=== PATIENT | male | born 1965 | race Caucasian/White ===

== ENCOUNTER 2017-08-04 08:06 | Day surgery (SDC) | payer BC ==
[~2017-08-04] VITALS: Ht 177.8 cm; Wt 95.3 kg
[~2017-08-04 08:06] MED LIST: ACETAMINOPHEN500 MG PO; HYDROCHLOROTHIA25 MG PO; NORCO 5-325 TA1 EACH PO; ZANTAC 7575 MG PO
[2017-08-04] MEDS ORDERED: LISINOPRIL10 MG PO (08:22)
[2017-08-04] MEDS ORDERED: OMEPRAZOLE20 MG PO (08:22)
--- NOTE | 2017-08-04 10:16 | NUR ---
08/04/17 Vandana Mcdermott 1010 PT ARRIVED TO PACU DROWSY AND MAINTAINING OWN AIRWAY. RESP EVEN AND UNLABORED. PT DENIES PAIN AND NAUSEA. ON 3L VIA NC.
--- NOTE | 2017-08-04 20:48 | OR ---
[facility] [address], [place] [address] Signed DATE OF OPERATION: 08/04/2017 SURGEON: Ashley Amador MD PREOPERATIVE DIAGNOSES: 1. Colon screening. 2. History of segmental resection of left transverse and proximal left colon 2007 (idiopathic, symptomatic, and adynamic section of colon). POSTOPERATIVE DIAGNOSIS: Normal colon to cecum. PROCEDURE PERFORMED: Total colonoscopy to cecum. ANESTHESIA: Intravenous sedation with fentanyl 100 mcg and Versed 6 mg. INDICATION: This 52-year-old white man is a patient of Dr. Mitchell. 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 He has been well since that time. He is here now for screening colonoscopy at age 52 years. The risks of bleeding, infection, and perforation related to colonoscopy were reviewed with him. He understands and wished to proceed. Of note, he has no family history of colon cancer and no symptoms currently. FINDINGS: The prep was good. Complete colonoscopy was undertaken to the cecum. There were no sign of polyps, diverticula formation, colitis, or cancer. The area of anastomosis was widely patent. DESCRIPTION OF PROCEDURE: The patient was brought to room #2 of the operating suite as a temporary endoscopy room and placed in lateral decubitus position. Intravenous sedation was induced with fentanyl and Versed to the point of slurred speech and nystagmus with full cardiopulmonary monitoring. Digital rectal examination was normal. Electronically Signed By: ASHLEY AMADOR MD 08/04/17 2048 PATIENT NAME: ERUM BREWER OPERATIVE REPORT DATE OF : 67 REPORT #: [id number] PHYSICIAN: ASHLEY AMADOR MD PCP: XENA MITCHELL MD REPORT IS CONFIDENTIAL AND NOT TO BE RELEASED WITHOUT AUTHORIZATION [facility] [address] [place] [id number] Signed An Olympus video colonoscope was passed in the rectum and manipulated throughout the colon, ultimately intubating the cecum itself. The ileocecal valve and appendiceal orifice were normal. The scope was withdrawn from that point. Examination throughout showed no sign of polyps, diverticula formation, colitis, or cancer. The anastomosis, which appeared in the lower left colon was widely patent and easily identified. Retroflexed view of the rectum was normal as well, other than some internal hemorrhoidal changes. The scope was removed and the patient was taken to the recovery room in good condition. CONCLUDING DIAGNOSIS: Normal colon. PLAN: Recommend repeat colonoscopy in 10 years or sooner if clinically indicated. He will return to the ongoing care of Dr. Mitchell. MD SIGRID Beltran/TANYA /[id number] cc: Xena Mitchell MD Copies: XENA MITCHELL MD ~ Electronically Signed By: ASHLEY AMADOR MD 08/04/17 2048 PATIENT NAME: ERUM BREWER OPERATIVE REPORT DATE OF : 67 REPORT #: [id number] PHYSICIAN: ASHLEY AMADOR MD PCP: XENA MITCHELL MD REPORT IS CONFIDENTIAL AND NOT TO BE RELEASED WITHOUT AUTHORIZATION
== END 2017-08-04 10:48 | disposition home or self-care (01) ==
LOC: DS 08:06 → OPS 08:06
PROVIDERS: Surgery
PROC: 0DJD8ZZ Inspection of Lower Intestinal Tract, Via Natural or Artificial Opening Endoscopic (ICD-10-PCS; principal; 2017-08-04 08:45)
DX: Z12.11 Encounter for screening for malignant neoplasm of colon (principal); K64.8 Other hemorrhoids; K21.0 Gastro-esophageal reflux disease with esophagitis; I10 Essential (primary) hypertension; M19.90 Unspecified osteoarthritis, unspecified site; E66.9 Obesity, unspecified; Z68.30 Body mass index [BMI] 30.0-30.9, adult; Z90.49 Acquired absence of other specified parts of digestive tract; Z87.19 Personal history of other diseases of the digestive system
CPT/HCPCS: G0500; J2250; J3010; J7120

== ENCOUNTER 2023-02-07 05:40 | Day surgery (SDC) | payer BC ==
--- NOTE | 2023-02-02 13:50 | NUR ---
PHONE TO TO THIS PATIENT TO COMPLET PHONE PRE-ADMIT. NO ANSWER LEFT MESSAGE TO CALL BACK BEFORE 3PM TODAY. WILL TRY AGAIN LATER TODAY. PHONE NUMBER WAS [phone]
[~2023-02-07] VITALS: Ht 177.8 cm; Wt 112.7 kg
[~2023-02-07 05:40] MED LIST changes: +CARDURA4 MG PO; +K-TAB ER20 MEQ PO; +LISINOPRIL10 MG PO; +MONODOX50 MG PO; +OMEPRAZOLE20 MG PO
[2023-02-07 06:15] VITALS: BP 148/94
[2023-02-07] MEDS ORDERED: HYDROCODON-ACE1 EA10 PO (07:21)
--- NOTE | 2023-02-07 07:23 | NUR ---
02/07/23 0723 Charo Jara PT TO PACU AWAKE AND ALERT DENIES PAIN AND NAUSEA. PT CONVERSING WITN STAFF.
[2023-02-07 07:41] VITALS: BP 124/86
--- NOTE | 2023-02-08 09:14 | OR ---
[facility] [address] [place], [place] [address] Signed DATE OF OPERATION: 02/07/2023 SURGEON: Sultana Jara MD PREOPERATIVE DIAGNOSIS: Carpal tunnel syndrome, left. POSTOPERATIVE DIAGNOSIS: Carpal tunnel syndrome, left. PROCEDURE PERFORMED: Carpal tunnel release, left. FEED MILL SUPERVISOR: None. ANESTHESIA: [place] block. TOURNIQUET TIME: 20 minutes. BRIEF HISTORY: Mendy is a 57-year-old gentleman with progressive worsening of numbness and pain in his wrist and hand. Nerve conduction studies were consistent with carpal tunnel. Risks and benefits of the operative treatment were discussed with him and he elected to proceed. DESCRIPTION OF PROCEDURE: Once consent was obtained, he was taken to the operating room on the day surgery bed. Hand table was brought in. The arm was then prepped and draped in a standard sterile fashion after Omid block was established. The carpal tunnel was approached through a 1.5 cm incision in the distal wrist crease carried through skin and subcutaneous tissue. The palmaris longus was minimal, but was retracted and protected. The transverse carpal ligament was identified under loupe magnification. It was then dissected free of overlying soft tissue proximally and distally. It was then released proximally a centimeter and distally to the distal extent again under direct loupe magnification. This was then palpated using [place] and confirmed to be released. The wound was copiously irrigated with normal saline, closed with 3-0 nylon. The wound was injected with 7 mL of 0.25% plain Marcaine. The wound was dressed with bacitracin, Adaptic, 4x8's, and gauze. Electronically Signed By: SULTANA JARA MD 02/08/23 0914 PATIENT NAME: MENDY BREWER OPERATIVE REPORT DATE OF : 67 REPORT #: [id number] PHYSICIAN: SULTANA JARA MD PCP: EFFIE RODRIGUEZ PA-C REPORT IS CONFIDENTIAL AND NOT TO BE RELEASED WITHOUT AUTHORIZATION [facility] [address] [place] [address] [place], [place] [address] Signed He tolerated the procedure well. All sponge, needle, and instrument counts were correct. Sultana Jara MD BA/TONYL /[id number] Copies: ~ Electronically Signed By: SULTANA JARA MD 02/08/23 0914 PATIENT NAME: MENDY BREWER OPERATIVE REPORT DATE OF : 67 REPORT #: [id number] PHYSICIAN: SULTANA JARA MD PCP: EFFIE RODRIGUEZ PA-C REPORT IS CONFIDENTIAL AND NOT TO BE RELEASED WITHOUT AUTHORIZATION
== END 2023-02-07 07:50 | disposition home or self-care (01) ==
LOC: DS 05:40
PROVIDERS: ATTEND Specialist
PROC: 01N50ZZ Release Median Nerve, Open Approach (ICD-10-PCS; principal; 2023-02-07 07:00)
DX: G56.02 Carpal tunnel syndrome, left upper limb (principal)
CPT/HCPCS: 01810; J0690; J1885; J2250; J2405; J2704; J7121

== ENCOUNTER 2024-09-27 18:00 | Emergency (ER) | payer OTHER ==
[~2024-09-27] VITALS: Ht 177.8 cm; Wt 108.0 kg
[~2024-09-27 18:00] MED LIST changes: +HYDROCODON-ACE1 EA10 PO
[2024-09-27 20:06] LABS: BASOPHILS 0.6 % (0.2-1.2); EOSINOPHILS 1.3 % (0.8-7.0); LYMPHOCYTES 18.3 % (21.8-53.1); MCH 32.2 PG (25.7-32.2); MCHC 35.2 g/dL (32.3-36.5); MCV 91.6 fL (79.0-92.2); MONOCYTES 9.2 % (5.3-12.2); NEUTROPHILS 70.4 % (34.0-67.9); RBC 4.28 M/uL (4.63-6.08)
[2024-09-27] MEDS ORDERED: ELIQUIS5 MG PO (22:02)
[2024-09-27] MEDS ORDERED: APIXABAN 5 MG TAB PO ONE (22:15)
[2024-09-27 22:38] VITALS: BP 105/70
== END 2024-09-27 22:38 | disposition home or self-care (01) ==
LOC: ED 18:00
PROVIDERS: Family Medicine
DX: I82.442 Acute embolism and thrombosis of left tibial vein (principal); I10 Essential (primary) hypertension; K21.9 Gastro-esophageal reflux disease without esophagitis; Z79.899 Other long term (current) drug therapy
CPT/HCPCS: 36415; 73610; 84550; 85025; 85379; 86140; 93971; 99284-25